=== PATIENT | male | born 1970 | race Caucasian/White ===

== ENCOUNTER 2018-10-23 08:40 | Inpatient (IN) | payer MEDICARE, MEDICAID ==
[2018-10-23] VITALS (7 sets, daily range): BP systolic 158–179; BP diastolic 73–79
[~2018-10-23] VITALS: Ht 182.9 cm; Wt 83.2 kg
--- NOTE | 2018-10-23 09:16 | NUR ---
PT TO ROOM FROM TRIAGE WITH A STEADY GAIT. AV FISTULA PRESENT IN RIGHT FA. I WILL MONITOR AND TREAT ORDERED, WELL PRN.
--- NOTE | 2018-10-23 09:36 | NUR ---
BLOOD SAMPLES OBTAINED W IV START. SENT TO THE LAB FOR EVAL.
[2018-10-23 09:52] LABS: MEAN CORPUSCULAR HGB CONC 32.6 g/dL (33.2-36.2); MEAN CORPUSCULAR VOLUME 85.7 fL (81-97); PLATELET COUNT 283 x10^3/uL (130-400); RED BLOOD COUNT 2.33 x10^6/uL (4.38-5.82); RED CELL DISTRIBUTION WIDTH 14.5 % (9.4-14.8)
--- NOTE | 2018-10-23 09:55 | NUR ---
AMADO (RN) IS ASSUMING CARE OF THIS PT AT THIS TIME. SBAR REPORT WAS EXCHANGED AT THE BEDSIDE.
[2018-10-23 10:03] LABS: ANION GAP 11 mmol/L (5-15); CALCIUM 7.9 mg/dL (8.5-10.1); CHLORIDE 114 mmol/L (98-107); CREATININE 5.39 mg/dL (0.7-1.3)
[2018-10-23 10:04] LABS: BASOPHILS % (AUTO) 0 % (0-1); EOSINOPHILS # (AUTO) 0.02 x10^3/uL (0-0.4); EOSINOPHILS % (AUTO) 0 % (1-7); LYMPHOCYTES # (AUTO) 0.28 x10^3/uL (1-3.4); LYMPHOCYTES % (AUTO) 6 % (22-44); MD MORPH REVIEW ONLY; MONOCYTES # (AUTO) 0.39 x10^3/uL (0.2-0.8); MONOCYTES % (AUTO) 7 % (2-9); NEUTROPHILS # (AUTO) 4.52 x10^3/uL (1.8-6.8); NEUTROPHILS % (AUTO) 87 % (42-75)
[2018-10-23 10:05] LABS: ANISOCYTOSIS 1+; ECHINOCYTES 1+; OVALOCYTES 1+; SCHISTOCYTES 1+
[2018-10-23 10:06] LABS: <PLATELET ESTIMATE> ADEQUATE; BIZARRE PLATELETS 1+; TEAR DROPS 1+
[2018-10-23] MEDS ORDERED: SODIUM CHLORIDE 0.9% 1,000 ML IV ONE (10:18)
[2018-10-23] MEDS ORDERED: SODIUM CHLORIDE 0.9% 1,000ML IVBOLUS ONE (10:30)
[2018-10-23] MEDS ORDERED: ONDANSETRON 2MG/ML, 2ML IVPush ONE (11:30)
[2018-10-23] MEDS ORDERED: ARANESP 200 MCG/ML **ESRD SQ SCH (11:30)
[2018-10-23] MEDS ORDERED: TACROLIMUS 0.5 MG CAPSULE PO SCH ×2 (11:30→21:00)
[2018-10-23] MEDS ORDERED: FUROSEMIDE 40 MG/4 ML ONE (11:51)
[2018-10-23] MEDS ORDERED: LOPE2CAP PO (11:56)
[2018-10-23] MEDS ORDERED: MAGN400T7 PO (11:56)
[2018-10-23] MEDS ORDERED: AMLO10TA8 PO (11:56)
[2018-10-23] MEDS ORDERED: CLON1PAT2 TD (11:56)
[2018-10-23] MEDS ORDERED: SODI650T PO (11:56)
[2018-10-23] MEDS ORDERED: FERR324T5 PO (11:56)
[2018-10-23] MEDS ORDERED: DARB100D INJ (11:56)
[2018-10-23] MEDS ORDERED: TACR0.5C4 PO (11:56)
[2018-10-23] MEDS ORDERED: CALC0.25 PO (11:56)
[2018-10-23] MEDS ORDERED: MYCO500T PO (11:56)
[2018-10-23] MEDS ORDERED: CARV25TA12 PO (11:56)
[2018-10-23] MEDS ORDERED: SIRO1TAB PO (11:56)
[2018-10-23] MEDS ORDERED: FURO20TA3 PO (11:56)
[2018-10-23] MEDS ORDERED: HYDR100T25 PO (11:56)
[2018-10-23] MEDS ORDERED: POTA20PA25 PO (11:56)
[2018-10-23] MEDS ORDERED: FUROSEMIDE 40 MG/4 ML IV ONE ×2 (12:00→17:00)
--- NOTE | 2018-10-23 12:00 | NUR ---
PT BEGAN TO HAVE A COUGH AFTER THE 2 L NS. LUNG SOUNDS ASSESSED AND PT LUNG SOUNDS WET. MD MADE AWARE. CHEST X RAY ORDERED. ORDERED 40 MG OF LASIX THAT WAS ADMIN BY SADIQ WRIGHT. PT PLACED ON INSTRUMENT REPAIR SPECIALIST AND [facility] LAB LEVEL DISCUSSED WITH . CHOSE AT THIS TIME TO WITHOLD K SUPPLEMENT DUE TO RENAL STATUS.
[2018-10-23] MEDS ORDERED: HEPARIN 5,000 UNITS/ML, 1ML SQ SCH (13:00)
[2018-10-23] MEDS ORDERED: ONDANSETRON ODT 4 MG PO PRN (13:00)
[2018-10-23] MEDS ORDERED: ONDANSETRON 2MG/ML, 2ML IVPush PRN (13:00)
[2018-10-23] MEDS ORDERED: DOCUSATE 100 MG CAPSULE PO PRN (13:00)
[2018-10-23] MEDS ORDERED: BISACODYL 10 MG SUPP PR PRN (13:00)
[2018-10-23] MEDS ORDERED: POLYETHYLENE GLYCOL 17 GM PACKET PO PRN (13:00)
[2018-10-23] MEDS ORDERED: POTASSIUM CHLORIDE 20 MEQ TAB.ER.PRT PO ONE ×2 (13:00→20:00)
--- NOTE | 2018-10-23 13:01 | NUR ---
BLOOD TRANSFUSION STOPPED BY ADMITTING MD AT THIS TIME.
[2018-10-23] MEDS ORDERED: ONDANSETRON 2MG/ML, 2ML ONE (13:05)
[2018-10-23] MEDS ORDERED: POTASSIUM CHLORIDE 20 MEQ TAB.ER.PRT ONE (13:19)
[2018-10-23] MEDS: SODIUM BICARBONATE 650 MG TABLET PO SCH (15:31)
[2018-10-23] MEDS: TACROLIMUS 0.5 MG CAPSULE PO SCH ×2 (15:31→20:36)
[2018-10-23] MEDS: AMLODIPINE 10 MG TAB PO SCH (20:35)
[2018-10-23] MEDS: FERROUS GLUCONATE 324 MG TABLET PO SCH (20:36)
[2018-10-23] MEDS: CARVEDILOL 25 MG TABLET PO SCH (20:36)
[2018-10-23] MEDS: CALCITRIOL 0.25 MCG CAPSULE PO SCH (20:38)
[2018-10-23] MEDS ORDERED: BUMETANIDE 0.25 MG/ML, 4ML IV ONE (21:00)
[2018-10-24 01:00] VITALS: BP 168/77
[2018-10-24 01:44] VITALS: BP 177/76
[2018-10-24] MEDS: hydrALAzine 20 MG/ML, 1ML IVPush PRN (04:47)
[2018-10-24] MEDS: SODIUM BICARBONATE 650 MG TABLET PO SCH ×3 (05:40→17:10)
[2018-10-24 06:55] LABS: ANION GAP 10 mmol/L (5-15); CHLORIDE 118 mmol/L (98-107); CREATININE 5.51 mg/dL (0.7-1.3)
[2018-10-24 07:29] LABS: MEAN CORPUSCULAR HEMOGLOBIN 27.5 pg (27.5-34.5); MEAN CORPUSCULAR HGB CONC 31.7 g/dL (33.2-36.2); MEAN CORPUSCULAR VOLUME 86.8 fL (81-97); MEAN PLATELET VOLUME 6.9 fL (7.4-10.4); PLATELET COUNT 321 x10^3/uL (130-400); RED BLOOD COUNT 3.19 x10^6/uL (4.38-5.82); RED CELL DISTRIBUTION WIDTH 14.5 % (9.4-14.8)
[2018-10-24 07:46] LABS: MD YES
[2018-10-24 07:48] LABS: BAND#(MANUAL) 1.09 x10^3/uL; BANDS%(MANUAL) 6 % (0-7); LYMPH#(MANUAL) 0.55 x10^3/uL (1-3.4); LYMPHS% (MANUAL) 3 % (22-44); MONOS#(MANUAL) 1.09 x10^3/uL (0.3-2.7); MONOS% (MANUAL) 6 % (2-9); SEG#(MANUAL) 15.47 x10^3/uL (1.8-6.8); SEGS% (MANUAL) 85 % (42-75)
[2018-10-24 07:49] LABS: ANISOCYTOSIS 1+; OVALOCYTES 1+
[2018-10-24 07:50] LABS: <PLATELET ESTIMATE> ADEQUATE; <PLT MORPHOLOGY> NORMAL PLT MORPH
[2018-10-24 08:00] VITALS: BP 163/75
[2018-10-24] MEDS ORDERED: MAGNESIUM OXIDE 400 MG TABLET PO SCH ×2 (08:00→09:00)
[2018-10-24] MEDS ORDERED: PHARMACY MAY ADJ FOR RENAL FX MC PRN (08:30)
[2018-10-24] MEDS ORDERED: FUROSEMIDE 40 MG/4 ML IV ONE (09:00)
[2018-10-24] MEDS ORDERED: LINEZOLID PMX 600MG/300ML 300 ML IV SCH (09:30)
[2018-10-24] MEDS: PIPERACILLIN/TAZO/PMX 2.25GM 50 ML IV SCH ×2 (09:51→17:11)
[2018-10-24] MEDS: CARVEDILOL 25 MG TABLET PO SCH ×2 (09:52→19:57)
[2018-10-24] MEDS: TACROLIMUS 0.5 MG CAPSULE PO SCH ×2 (10:05→19:57)
[2018-10-24] MEDS: SIROLIMUS 1 MG TABLET PO SCH (10:59)
[2018-10-24] MEDS ORDERED: MYCO360T PO (11:03)
[2018-10-24 11:12] LABS: MICROSCOPIC INDICATED
[2018-10-24 11:23] LABS: CULTURE INDICATED? NO
[2018-10-24 11:25] LABS: INTERNATIONAL NORMALIZED RATIO 1.16 (0.93-1.1); PROTHROMBIN TIME 12.1 Seconds (9.6-11.5)
[2018-10-24] MEDS ORDERED: FENTANYL PF 100 MCG/2ML ONE ×2 (13:10)
[2018-10-24 14:00] VITALS: BP 155/78
[2018-10-24] MEDS: DOXYCYCLINE 100 MG in DEXTROSE 5% 250 ML IV SCH ×2 (14:14→23:59)
[2018-10-24] MEDS: ACETAMINOPHEN 325 MG TABLET PO PRN (14:14)
[2018-10-24] MEDS: FERROUS GLUCONATE 324 MG TABLET PO SCH (17:11)
[2018-10-24 18:47] VITALS: BP 150/64
[2018-10-24] MEDS: AMLODIPINE 10 MG TAB PO SCH (19:56)
[2018-10-24] MEDS: MAGNESIUM OXIDE 400 MG TABLET PO SCH (19:57)
[2018-10-24] MEDS: CALCITRIOL 0.25 MCG CAPSULE PO SCH (19:57)
[2018-10-25 01:18] VITALS: BP 157/68
[2018-10-25] MEDS: PIPERACILLIN/TAZO/PMX 2.25GM 50 ML IV SCH (01:31)
[2018-10-25 05:08] LABS: ALBUMIN 2.4 g/dL (3.4-5.0); CALCIUM 7.4 mg/dL (8.5-10.1); CHLORIDE 113 mmol/L (98-107)
[2018-10-25 05:10] LABS: MEAN CORPUSCULAR HEMOGLOBIN 28.7 pg (27.5-34.5); MEAN CORPUSCULAR VOLUME 86.8 fL (81-97); MEAN PLATELET VOLUME 7.3 fL (7.4-10.4); PLATELET COUNT 210 x10^3/uL (130-400); RED CELL DISTRIBUTION WIDTH 14.8 % (9.4-14.8)
[2018-10-25 05:13] LABS: ALANINE AMINOTRANSFERASE 10 U/L (12-78); ALKALINE PHOSPHATASE 71 U/L (45-117); ANION GAP 11 mmol/L (5-15); BILIRUBIN,TOTAL 0.2 mg/dL (0.2-1.0); CREATININE 5.75 mg/dL (0.7-1.3); TOTAL PROTEIN 4.9 g/dL (6.4-8.2)
[2018-10-25 06:16] LABS: MD YES
[2018-10-25 06:30] LABS: <PLATELET ESTIMATE> ADEQUATE; <PLT MORPHOLOGY> NORMAL PLT MORPH; ANISOCYTOSIS 1+; LYMPH#(MANUAL) 0.28 x10^3/uL (1-3.4); LYMPHS% (MANUAL) 4 % (22-44); MONOS#(MANUAL) 0.28 x10^3/uL (0.3-2.7); MONOS% (MANUAL) 4 % (2-9); SEG#(MANUAL) 6.53 x10^3/uL (1.8-6.8); SEGS% (MANUAL) 92 % (42-75)
[2018-10-25 06:31] LABS: OVALOCYTES 1+; SCHISTOCYTES 1+
[2018-10-25 07:25] VITALS: BP 149/69
[2018-10-25] MEDS ORDERED: ERGOCALCIFEROL 50,000 UNIT CAPSULE PO SCH (08:00)
[2018-10-25] MEDS: SIROLIMUS 1 MG TABLET PO SCH (08:19)
[2018-10-25] MEDS: SODIUM BICARBONATE 650 MG TABLET PO SCH ×3 (08:19→16:41)
[2018-10-25] MEDS: CARVEDILOL 25 MG TABLET PO SCH ×2 (08:19→20:41)
[2018-10-25] MEDS: MAGNESIUM OXIDE 400 MG TABLET PO SCH ×2 (08:19→20:40)
[2018-10-25] MEDS: CEFTRIAXONE PMX 1GM/50ML 50 ML IV SCH (08:20)
[2018-10-25] MEDS: TACROLIMUS 0.5 MG CAPSULE PO SCH ×2 (08:20→20:40)
[2018-10-25 12:06] LABS: HEMOGLOBIN A1C 5.1 % (4.2-6.3)
[2018-10-25] MEDS: DOXYCYCLINE 100 MG in DEXTROSE 5% 250 ML IV SCH (12:29)
[2018-10-25 13:42] VITALS: BP 165/74
[2018-10-25] MEDS: FERROUS GLUCONATE 324 MG TABLET PO SCH (16:41)
[2018-10-25 19:26] VITALS: BP 170/83
[2018-10-25] MEDS: AMLODIPINE 10 MG TAB PO SCH ×2 (20:39→20:41)
[2018-10-25] MEDS: CALCITRIOL 0.25 MCG CAPSULE PO SCH (20:40)
[2018-10-26] VITALS (7 sets, daily range): BP systolic 152–181; BP diastolic 70–85
[2018-10-26] MEDS: DOXYCYCLINE 100 MG in DEXTROSE 5% 250 ML IV SCH ×2 (00:19→13:15)
[2018-10-26 05:12] LABS: MEAN CORPUSCULAR HEMOGLOBIN 28.6 pg (27.5-34.5); MEAN CORPUSCULAR HGB CONC 32.5 g/dL (33.2-36.2); MEAN CORPUSCULAR VOLUME 88.1 fL (81-97); MEAN PLATELET VOLUME 7.6 fL (7.4-10.4); PLATELET COUNT 208 x10^3/uL (130-400); RED BLOOD COUNT 2.56 x10^6/uL (4.38-5.82); RED CELL DISTRIBUTION WIDTH 14.7 % (9.4-14.8)
[2018-10-26 05:18] LABS: ALBUMIN 2.3 g/dL (3.4-5.0); CALCIUM 7.4 mg/dL (8.5-10.1); CHLORIDE 111 mmol/L (98-107)
[2018-10-26 05:23] LABS: ALANINE AMINOTRANSFERASE 12 U/L (12-78); ALKALINE PHOSPHATASE 66 U/L (45-117); ANION GAP 13 mmol/L (5-15); BILIRUBIN,TOTAL 0.4 mg/dL (0.2-1.0); CREATININE 5.82 mg/dL (0.7-1.3); TOTAL PROTEIN 5.2 g/dL (6.4-8.2)
[2018-10-26] MEDS: SODIUM BICARBONATE 650 MG TABLET PO SCH ×3 (06:05→16:10)
[2018-10-26 06:09] LABS: BASOPHILS % (AUTO) 0 % (0-1); EOSINOPHILS # (AUTO) 0.04 x10^3/uL (0-0.4); EOSINOPHILS % (AUTO) 1 % (1-7); LYMPHOCYTES # (AUTO) 0.41 x10^3/uL (1-3.4); LYMPHOCYTES % (AUTO) 6 % (22-44); MD SCAN; MONOCYTES # (AUTO) 0.71 x10^3/uL (0.2-0.8); MONOCYTES % (AUTO) 10 % (2-9); NEUTROPHILS # (AUTO) 5.84 x10^3/uL (1.8-6.8); NEUTROPHILS % (AUTO) 83 % (42-75)
[2018-10-26] MEDS: MAGNESIUM OXIDE 400 MG TABLET PO SCH ×2 (09:49→20:31)
[2018-10-26] MEDS: CARVEDILOL 25 MG TABLET PO SCH ×2 (09:49→20:31)
[2018-10-26] MEDS: TACROLIMUS 0.5 MG CAPSULE PO SCH ×2 (09:49→20:30)
[2018-10-26] MEDS: CEFTRIAXONE PMX 1GM/50ML 50 ML IV SCH (09:54)
[2018-10-26] MEDS: SIROLIMUS 1 MG TABLET PO SCH (09:54)
[2018-10-26] MEDS: FERROUS GLUCONATE 324 MG TABLET PO SCH (16:10)
[2018-10-26] MEDS: hydrALAzine 20 MG/ML, 1ML IVPush PRN (16:56)
[2018-10-26] MEDS ORDERED: TACROLIMUS 0.5 MG CAPSULE ONE (20:18)
[2018-10-26] MEDS: CALCITRIOL 0.25 MCG CAPSULE PO SCH (20:30)
[2018-10-26] MEDS: AMLODIPINE 10 MG TAB PO SCH (20:30)
[2018-10-27] VITALS (14 sets, daily range): BP systolic 136–184; BP diastolic 61–85
[2018-10-27] MEDS: ACETAMINOPHEN 325 MG TABLET PO PRN ×2 (01:00→23:05)
[2018-10-27] MEDS: DOXYCYCLINE 100 MG in DEXTROSE 5% 250 ML IV SCH ×2 (01:00→12:51)
[2018-10-27 04:59] LABS: ANION GAP 11 mmol/L (5-15); CALCIUM 7.5 mg/dL (8.5-10.1); CHLORIDE 112 mmol/L (98-107)
[2018-10-27 05:05] LABS: ALANINE AMINOTRANSFERASE 19 U/L (12-78); ALBUMIN 2.3 g/dL (3.4-5.0); ALKALINE PHOSPHATASE 66 U/L (45-117); BILIRUBIN,TOTAL 0.2 mg/dL (0.2-1.0); CREATININE 5.77 mg/dL (0.7-1.3); TOTAL PROTEIN 5.1 g/dL (6.4-8.2)
[2018-10-27 05:06] LABS: MEAN CORPUSCULAR HEMOGLOBIN 27.8 pg (27.5-34.5); MEAN CORPUSCULAR HGB CONC 32.5 g/dL (33.2-36.2); MEAN CORPUSCULAR VOLUME 85.6 fL (81-97); MEAN PLATELET VOLUME 7.4 fL (7.4-10.4); PLATELET COUNT 223 x10^3/uL (130-400); RED BLOOD COUNT 2.42 x10^6/uL (4.38-5.82); RED CELL DISTRIBUTION WIDTH 14.9 % (9.4-14.8)
[2018-10-27 05:49] LABS: BASOPHILS # (AUTO) 0.01 x10^3/uL (0-0.1); BASOPHILS % (AUTO) 0 % (0-1); EOSINOPHILS # (AUTO) 0.04 x10^3/uL (0-0.4); EOSINOPHILS % (AUTO) 1 % (1-7); LYMPHOCYTES # (AUTO) 0.43 x10^3/uL (1-3.4); LYMPHOCYTES % (AUTO) 9 % (22-44); MD MORPH REVIEW ONLY; MONOCYTES # (AUTO) 0.73 x10^3/uL (0.2-0.8); MONOCYTES % (AUTO) 15 % (2-9); NEUTROPHILS # (AUTO) 3.82 x10^3/uL (1.8-6.8); NEUTROPHILS % (AUTO) 76 % (42-75)
[2018-10-27 05:50] LABS: ANISOCYTOSIS 1+; OVALOCYTES 1+
[2018-10-27 05:51] LABS: SCHISTOCYTES 1+
[2018-10-27 05:52] LABS: <PLATELET ESTIMATE> ADEQUATE; <PLT MORPHOLOGY> NORMAL PLT MORPH; ECHINOCYTES 1+
[2018-10-27] MEDS: SODIUM BICARBONATE 650 MG TABLET PO SCH ×3 (06:30→16:30)
[2018-10-27] MEDS: CARVEDILOL 25 MG TABLET PO SCH ×2 (09:19→20:18)
[2018-10-27] MEDS: MAGNESIUM OXIDE 400 MG TABLET PO SCH ×2 (09:19→20:19)
[2018-10-27] MEDS: TACROLIMUS 0.5 MG CAPSULE PO SCH ×2 (09:19→20:18)
[2018-10-27] MEDS: SIROLIMUS 1 MG TABLET PO SCH (09:56)
[2018-10-27] MEDS: CEFTRIAXONE PMX 1GM/50ML 50 ML IV SCH (10:55)
[2018-10-27] MEDS: POTASSIUM CHLORIDE 20 MEQ TAB.ER.PRT PO SCH (12:51)
[2018-10-27] MEDS: FERROUS GLUCONATE 324 MG TABLET PO SCH (16:30)
[2018-10-27] MEDS ORDERED: POTASSIUM CHLORIDE 20 MEQ TAB.ER.PRT PO ONE (19:00)
[2018-10-27] MEDS: AMLODIPINE 10 MG TAB PO SCH (20:18)
[2018-10-27] MEDS: CALCITRIOL 0.25 MCG CAPSULE PO SCH (20:18)
[2018-10-27] MEDS: DOXYCYCLINE 100MG TABLET PO SCH (20:19)
[2018-10-27] MEDS: hydrALAzine 20 MG/ML, 1ML IVPush PRN (21:46)
[2018-10-28 01:02] VITALS: BP 151/66
[2018-10-28 05:38] LABS: MEAN CORPUSCULAR HEMOGLOBIN 28.4 pg (27.5-34.5); MEAN CORPUSCULAR HGB CONC 32.7 g/dL (33.2-36.2); MEAN PLATELET VOLUME 7.4 fL (7.4-10.4); PLATELET COUNT 234 x10^3/uL (130-400); RED BLOOD COUNT 2.93 x10^6/uL (4.38-5.82); RED CELL DISTRIBUTION WIDTH 15.2 % (9.4-14.8)
[2018-10-28 06:09] LABS: CHLORIDE 113 mmol/L (98-107)
[2018-10-28 06:14] LABS: MD YES
[2018-10-28 06:17] LABS: BAND#(MANUAL) 0.29 x10^3/uL; BANDS%(MANUAL) 6 % (0-7); EOS#(MANUAL) 0.05 x10^3/uL (0.0-0.4); EOS% (MANUAL) 1 % (1-7); LYMPH#(MANUAL) 0.34 x10^3/uL (1-3.4); LYMPHS% (MANUAL) 7 % (22-44); MONOS#(MANUAL) 0.54 x10^3/uL (0.3-2.7); MONOS% (MANUAL) 11 % (2-9); SEG#(MANUAL) 3.68 x10^3/uL (1.8-6.8); SEGS% (MANUAL) 75 % (42-75)
[2018-10-28 06:18] LABS: ANION GAP 14 mmol/L (5-15); ANISOCYTOSIS 1+; CREATININE 5.51 mg/dL (0.7-1.3)
[2018-10-28 06:19] LABS: <PLATELET ESTIMATE> ADEQUATE; <PLT MORPHOLOGY> NORMAL PLT MORPH
[2018-10-28 07:01] VITALS: BP 165/81
[2018-10-28] MEDS: SODIUM BICARBONATE 650 MG TABLET PO SCH ×3 (07:58→16:32)
[2018-10-28] MEDS: CEFTRIAXONE PMX 1GM/50ML 50 ML IV SCH (09:21)
[2018-10-28] MEDS: TACROLIMUS 0.5 MG CAPSULE PO SCH ×2 (09:22→20:26)
[2018-10-28] MEDS: MAGNESIUM OXIDE 400 MG TABLET PO SCH ×2 (09:22→20:26)
[2018-10-28] MEDS: SIROLIMUS 1 MG TABLET PO SCH (09:22)
[2018-10-28] MEDS: DOXYCYCLINE 100MG TABLET PO SCH ×2 (09:22→20:26)
[2018-10-28] MEDS: POTASSIUM CHLORIDE 20 MEQ TAB.ER.PRT PO SCH (09:22)
[2018-10-28] MEDS: CARVEDILOL 25 MG TABLET PO SCH ×2 (09:22→20:27)
[2018-10-28 12:35] VITALS: BP 174/79
[2018-10-28] MEDS: hydrALAzine 20 MG/ML, 1ML IVPush PRN (13:49)
[2018-10-28] MEDS: FERROUS GLUCONATE 324 MG TABLET PO SCH (16:32)
[2018-10-28 20:00] VITALS: BP 188/88
[2018-10-28] MEDS: CALCITRIOL 0.25 MCG CAPSULE PO SCH (20:26)
[2018-10-28] MEDS: AMLODIPINE 10 MG TAB PO SCH (20:26)
[2018-10-28 22:04] VITALS: BP 169/74
[2018-10-29 03:17] VITALS: BP 164/76
[2018-10-29 07:00] VITALS: BP 145/70
[2018-10-29] MEDS: SIROLIMUS 1 MG TABLET PO SCH (08:32)
[2018-10-29] MEDS: CEFTRIAXONE PMX 1GM/50ML 50 ML IV SCH (08:32)
[2018-10-29] MEDS: DOXYCYCLINE 100MG TABLET PO SCH (08:33)
[2018-10-29] MEDS: TACROLIMUS 0.5 MG CAPSULE PO SCH (08:33)
[2018-10-29] MEDS: CARVEDILOL 25 MG TABLET PO SCH (08:33)
[2018-10-29] MEDS: MAGNESIUM OXIDE 400 MG TABLET PO SCH (08:33)
[2018-10-29] MEDS ORDERED: SODIUM BICARBONATE 650 MG TABLET PO SCH (09:00)
[2018-10-29] MEDS ORDERED: ERGO500017 PO (11:52)
[2018-10-29] MEDS ORDERED: DOXY100T PO (11:52)
[2018-10-29] MEDS ORDERED: CEFD300C37 PO (11:52)
[2018-10-29] MEDS ORDERED: MAGN400T7 PO (11:52)
[2018-10-29] MEDS ORDERED: MAGN400T50 PO (11:52)
[2018-10-29] MEDS ORDERED: LACT1TAB13 PO (11:52)
[2018-10-29 14:54] VITALS: BP 169/83
[2018-10-30] MEDS ORDERED: POTASSIUM CHLORIDE 20 MEQ TAB.ER.PRT PO SCH (08:00)
== END 2018-10-29 15:45 | disposition home or self-care (01) | DRG 682 ==
LOC: ED 10:29 → EDIP 13:07 → 5SO 14:52 → 4WST 10-26 15:42 → DCLOUNGE 10-29 15:22
PROVIDERS: ADMIT Internal Medicine; ATTEND Internal Medicine
PROC: 30233N1 Transfusion of Nonautologous Red Blood Cells into Peripheral Vein, Percutaneous Approach (ICD-10-PCS; 2018-10-23)
PROC: 0TB03ZX Excision of Right Kidney, Percutaneous Approach, Diagnostic (ICD-10-PCS; principal; 2018-10-24)
DX: N17.9 Acute kidney failure, unspecified (principal); J96.01 Acute respiratory failure with hypoxia; I13.0 Hypertensive heart and chronic kidney disease with heart failure and stage 1 through stage 4 chronic kidney disease, or unspecified chronic kidney disease; E87.2 Acidosis; Z94.0 Kidney transplant status; N18.4 Chronic kidney disease, stage 4 (severe); D63.1 Anemia in chronic kidney disease; E11.22 Type 2 diabetes mellitus with diabetic chronic kidney disease; E83.42 Hypomagnesemia; E86.0 Dehydration; E87.6 Hypokalemia; I50.9 Heart failure, unspecified; N25.0 Renal osteodystrophy; Z80.0 Family history of malignant neoplasm of digestive organs; Z82.49 Family history of ischemic heart disease and other diseases of the circulatory system; Z83.3 Family history of diabetes mellitus
CPT/HCPCS: 36415; 36430; 50200; 71045; 76776; 77012; 80048; 80053; 81001; 82306; 82728; 83036; 83540; 83550; 83605; 83735; 83880; 83970; 84100; 84145; 84550; 85014; 85018; 85025; 85610; 86631; 86632; 86635; 86738; 86850; 86900; 86923; 87040; 87070; 87205; 87633; 88300; 93005; 93306; 96375; 99291; G0378; J0696; J0882; J1940; J2020; J2405; J2543; J3010; J7060; J7507; J7518; J7520; J0360; J7030; P9040